=== PATIENT | female | born 1950 | race Asian ===

== ENCOUNTER 2021-08-12 13:49 | Inpatient (IN) | payer MEDICARE ==
[~2021-08-12] VITALS: Ht 165.1 cm; Wt 72.7 kg
[2021-08-12 14:30] LABS: BASOPHILS % (AUTO) 0.3 % (0-1); EOSINOPHILS % (AUTO) 0.3 % (0-6); HEMATOCRIT 34.2 % (35.0-45.0); HEMOGLOBIN 11.5 g/dl (12.0-16.0); LYMPHOCYTES # (AUTO) 0.9 X10'3 (1.1-4.8); LYMPHOCYTES % (AUTO) 9.2 % (21-51); MEAN CORPUSCULAR HEMOGLOBIN 28.8 PG (27.0-31.0); MEAN CORPUSCULAR HGB CONC 33.6 g/dL (33.0-36.5); MEAN CORPUSCULAR VOLUME 85.7 FL (78-98); MEAN PLATELET VOLUME 7.3 FL (7.4-10.4); MONOCYTES # (AUTO) 1.1 X10'3 (0-0.9); MONOCYTES % (AUTO) 11.1 % (2-12); NEUTROPHILS # (AUTO) 7.7 X10'3 (1.8-7.7); NEUTROPHILS % (AUTO) 79.1 % (42-75); PLATELET COUNT 321 X10'3 (140-440); RED BLOOD COUNT 3.99 X10'6 (4.20-5.60); RED CELL DISTRIBUTION WIDTH 14.3 % (11.5-14.5); WHITE BLOOD COUNT 9.8 X10'3 (4.5-11.0)
[2021-08-12 14:44] LABS: CHLORIDE 95 MMOL/L (99-107); GLUCOSE 104 MG/DL (70-104); POTASSIUM 3.8 MMOL/L (3.5-5.1); SODIUM 130 MMOL/L (135-145); TOTAL CARBON DIOXIDE 28.3 MMOL/L (24-32)
[2021-08-12 14:45] LABS: ALANINE AMINOTRANSFERASE 80 U/L (12-78); ALBUMIN 2.3 G/DL (3.4-5.0); ALBUMIN/GLOBULIN RATIO 0.4 (1.1-1.5); ALKALINE PHOSPHATASE 571 IU/L (46-116); ANION GAP 7 (8-16); ASPARTATE AMINO TRANSFERASE 69 U/L (10-37); BILIRUBIN,TOTAL 1.1 MG/DL (0.1-1.0); BLOOD UREA NITROGEN 11 MG/DL (7-18); BUN/CREATININE RATIO 16.9 (6.6-38.0); CALCIUM 8.5 MG/DL (8.5-10.1); CREATININE 0.65 MG/DL (0.40-0.90); TOTAL PROTEIN 8.2 G/DL (6.4-8.2); eGFR 90 ML/MIN
[2021-08-12 14:48] LABS: CLARITY,URINE SLIGHTLY CLOUDY (Clear); GLUCOSE, URINE NEGATIVE (Neg); KETONES,URINE TRACE mg/dl (Neg); LEUKOCYTE ESTERASE ,URINE NEGATIVE (Neg); NITRITES, URINE NEGATIVE (Neg); OCCULT BLOOD,URINE TRACE-INTACT (Neg); PROTEIN,URINE 30 mg/dl (Neg)
[2021-08-12 14:53] LABS: COLOR,URINE DARK YELLOW (Yellow); UA COLLECTION TYPE CLN CATCH MIDSTREAM
[2021-08-12 14:54] LABS: WBC,URINE 0-4 /HPF (0-4)
[2021-08-12 14:55] LABS: BACTERIA,URINE FEW /HPF (Neg); RBC,URINE 0-2 /HPF (0-2); SQUAMOUS EPITHELIAL CELL,UR FEW /LPF (FEW)
[2021-08-12 14:57] LABS: HYALINE CASTS 0-3 /LPF (NEGATIVE); MUCUS STRANDS MANY /LPF (Neg)
[2021-08-12] MEDS ORDERED: HYDROcodone/acetaminophen 5mg/325mg tablet PO ONE (22:25)
[2021-08-12] MEDS ORDERED: aspirin 325mg tablet PO ONE (23:15)
[2021-08-12] MEDS ORDERED: piperacillin/tazo 4.5gm/100ml 100 ML IV SCH ×2 (23:25→23:47)
[2021-08-12 23:45] LABS: LIPASE 1305 U/L (73-393)
[2021-08-13] MEDS ORDERED: morphine 2 MG/ML inj. syringe IV PRN ×2 (00:10)
[2021-08-13] MEDS ORDERED: magnesium hydroxide 30ml (MOM) UD suspension PO PRN (00:10)
[2021-08-13] MEDS ORDERED: mag hydrox/Alum hydrox/simeth 30ml oral suspension PO PRN (00:10)
[2021-08-13] MEDS ORDERED: acetaminophen 325mg tablet PO PRN (00:10)
[2021-08-13] MEDS ORDERED: ondansetron/PF 4mg/2ml inj IV PRN (00:10)
[2021-08-13] MEDS ORDERED: PERFLUTREN PROTEIN-A MICROSPHR (Optison) 0.22 MG/ML 3ML VIAL IV ONE (00:25)
[2021-08-13] MEDS ORDERED: LISI10TA27 PO (01:03)
[2021-08-13] MEDS ORDERED: ATOR20TA PO (01:03)
[2021-08-13] MEDS: normal saline 1000ml 1,000 ML IV SCH ×3 (04:59→20:10)
--- NOTE | 2021-08-13 05:01 | NUR ---
Namratather that translates for patient left her number before leaving. Daughter's number if needed for translation, etc. is [phone]
[2021-08-13] MEDS: potassium CL 10mEq/100ml bag 100 ML IV PRN ×4 (05:48→16:38)
[2021-08-13] MEDS ORDERED: sevoflurane 250ml liquid IH ONE (06:00)
[2021-08-13] MEDS: K and/or MAG REPLACEMENT MC SCH ×2 (08:00→20:00)
[2021-08-13] MEDS: docusate sod 100mg capsule PO SCH ×2 (08:00→20:57)
[2021-08-13] MEDS: piperacillin/tazo 3.375gm/50ml 50 ML IV SCH ×3 (08:59→23:40)
[2021-08-13 10:12] LABS: BASOPHILS % (AUTO) 0.3 % (0-1); EOSINOPHILS % (AUTO) 0.3 % (0-6); HEMATOCRIT 33.8 % (35.0-45.0); HEMOGLOBIN 11.3 g/dl (12.0-16.0); LYMPHOCYTES # (AUTO) 0.6 X10'3 (1.1-4.8); LYMPHOCYTES % (AUTO) 8.5 % (21-51); MEAN CORPUSCULAR HEMOGLOBIN 28.5 PG (27.0-31.0); MEAN CORPUSCULAR HGB CONC 33.6 g/dL (33.0-36.5); MEAN PLATELET VOLUME 7.4 FL (7.4-10.4); MONOCYTES # (AUTO) 0.8 X10'3 (0-0.9); MONOCYTES % (AUTO) 11.4 % (2-12); NEUTROPHILS # (AUTO) 5.7 X10'3 (1.8-7.7); NEUTROPHILS % (AUTO) 79.5 % (42-75); PLATELET COUNT 307 X10'3 (140-440); RED BLOOD COUNT 3.98 X10'6 (4.20-5.60); RED CELL DISTRIBUTION WIDTH 14.2 % (11.5-14.5); WHITE BLOOD COUNT 7.2 X10'3 (4.5-11.0)
--- NOTE | 2021-08-13 10:20 | NUR ---
PT TO MRI
[2021-08-13 10:28] LABS: APTT 33 SECONDS (22-32)
[2021-08-13 10:32] LABS: ALANINE AMINOTRANSFERASE 59 U/L (12-78); ALBUMIN 1.9 G/DL (3.4-5.0); ALBUMIN/GLOBULIN RATIO 0.4 (1.1-1.5); ALKALINE PHOSPHATASE 496 IU/L (46-116); ANION GAP 6 (8-16); ASPARTATE AMINO TRANSFERASE 49 U/L (10-37); BILIRUBIN,TOTAL 0.8 MG/DL (0.1-1.0); BLOOD UREA NITROGEN 7 MG/DL (7-18); BUN/CREATININE RATIO 13.2 (6.6-38.0); CALCIUM 8.3 MG/DL (8.5-10.1); CHLORIDE 99 MMOL/L (99-107); CREATININE 0.53 MG/DL (0.40-0.90); GLUCOSE 105 MG/DL (70-104); POTASSIUM 3.8 MMOL/L (3.5-5.1); SODIUM 132 MMOL/L (135-145); TOTAL CARBON DIOXIDE 26.6 MMOL/L (24-32); eGFR > 90 ML/MIN
[2021-08-13] MEDS ORDERED: ONDA-104 PO (11:17)
--- NOTE | 2021-08-13 11:30 | NUR ---
DISCUSSED FOLLOW UP TROP PER ELEVATED INITIAL TROP ON ADMISSION. MD GAVE ORDER FOR REPEAT TROPONIN.
[2021-08-13 12:29] LABS: HEMOGLOBIN A1C 6.7 % (4.5-6.2)
--- NOTE | 2021-08-13 12:30 | NUR ---
NOTIFIED DR. MCKEON OF TROPONIN RESULT. RESULT SHOWS LITTLE CHANGE. MD GAVE NO NEW ORDERS.
[2021-08-13 13:33] LABS: LIPASE 567 U/L (73-393)
[2021-08-13 19:30] VITALS: BP 123/67
[2021-08-13] MEDS: lactobacillus rhamnosus 10,000 MMU CELLS/CAPSULE PO SCH (20:57)
[2021-08-14] VITALS: BP 96/78
[2021-08-14] MEDS: normal saline 1000ml 1,000 ML IV SCH ×2 (05:15→16:48)
--- NOTE | 2021-08-14 06:27 | NUR ---
Problems reprioritized. Patient report given, questions answered & plan of care reviewed with Joanne PHILIP.
[2021-08-14] MEDS: lactobacillus rhamnosus 10,000 MMU CELLS/CAPSULE PO SCH ×2 (06:49→19:28)
[2021-08-14] MEDS: docusate sod 100mg capsule PO SCH ×2 (06:49→19:28)
[2021-08-14 06:56] LABS: BASOPHILS % (AUTO) 0.4 % (0-1); EOSINOPHILS % (AUTO) 0.7 % (0-6); HEMATOCRIT 33.6 % (35.0-45.0); HEMOGLOBIN 11.2 g/dl (12.0-16.0); LYMPHOCYTES # (AUTO) 0.9 X10'3 (1.1-4.8); LYMPHOCYTES % (AUTO) 14.4 % (21-51); MEAN CORPUSCULAR HEMOGLOBIN 28.5 PG (27.0-31.0); MEAN CORPUSCULAR HGB CONC 33.4 g/dL (33.0-36.5); MEAN CORPUSCULAR VOLUME 85.4 FL (78-98); MEAN PLATELET VOLUME 7.7 FL (7.4-10.4); MONOCYTES # (AUTO) 0.8 X10'3 (0-0.9); NEUTROPHILS # (AUTO) 4.6 X10'3 (1.8-7.7); NEUTROPHILS % (AUTO) 71.5 % (42-75); PLATELET COUNT 313 X10'3 (140-440); RED BLOOD COUNT 3.93 X10'6 (4.20-5.60); RED CELL DISTRIBUTION WIDTH 14.2 % (11.5-14.5); WHITE BLOOD COUNT 6.4 X10'3 (4.5-11.0)
[2021-08-14 07:16] LABS: ALANINE AMINOTRANSFERASE 48 U/L (12-78); ALBUMIN 1.7 G/DL (3.4-5.0); ALBUMIN/GLOBULIN RATIO 0.3 (1.1-1.5); ALKALINE PHOSPHATASE 471 IU/L (46-116); ANION GAP 6 (8-16); ASPARTATE AMINO TRANSFERASE 45 U/L (10-37); BILIRUBIN,TOTAL 0.7 MG/DL (0.1-1.0); BLOOD UREA NITROGEN 5 MG/DL (7-18); BUN/CREATININE RATIO 9.4 (6.6-38.0); CALCIUM 7.9 MG/DL (8.5-10.1); CHLORIDE 101 MMOL/L (99-107); CREATININE 0.53 MG/DL (0.40-0.90); GLUCOSE 101 MG/DL (70-104); LIPASE 683 U/L (73-393); POTASSIUM 3.7 MMOL/L (3.5-5.1); SODIUM 134 MMOL/L (135-145); TOTAL CARBON DIOXIDE 27.1 MMOL/L (24-32); TOTAL PROTEIN 6.7 G/DL (6.4-8.2); eGFR > 90 ML/MIN
[2021-08-14] MEDS: K and/or MAG REPLACEMENT MC SCH ×2 (07:28→20:00)
[2021-08-14] MEDS: piperacillin/tazo 3.375gm/50ml 50 ML IV SCH ×2 (07:29→16:48)
[2021-08-14 09:00] VITALS: BP 125/73
[2021-08-14 13:45] LABS: CARCINOEMBRYONIC ANTIGEN 0.8 ng/mL (0.0-4.7)
--- NOTE | 2021-08-14 14:15 | NUR ---
DM/malnutrition consults: Pt with T2DM, well controlled with A1c 6.7%, DM education not warranted at this time. Pt reports wt loss with decreased appetite per malnutrition risk screen with RN. Per ED report pt has been having abdominal discomfort for approximately one month with N/V over the past two days. No documentation of how current wt was obtained and no wt hx in EMR, though if current wt is accurate it is 128% IBW. Attempted visit at bedside though pt appeared to be sleeping and no visitors at bedside. No visible fat or muscle wasting was noted. Pt with an active clear liquid diet though documented to be NPO. No documented decrease in muscle strength or edema. Pt currently lacks a minimum of two criteria for malnutrition. Will continue to follow and further monitor qualifying criteria for malnutrition. Addendum: 08/14/21 at [address] Amended: Links added.
--- NOTE | 2021-08-14 18:31 | NUR ---
Patient in room [facility]. I have received report from Joanne PHILIP and had the opportunity to ask questions and assume patient care.
--- NOTE | 2021-08-14 18:31 | NUR ---
Problems reprioritized. Patient report given, questions answered & plan of care reviewed with MARCOS PHILIP.
[2021-08-14 20:00] VITALS: BP 109/70
[2021-08-15] VITALS (21 sets, daily range): BP systolic 107–159; BP diastolic 64–93
[2021-08-15] MEDS: piperacillin/tazo 3.375gm/50ml 50 ML IV SCH ×4 (00:01→23:13)
[2021-08-15] MEDS: normal saline 1000ml 1,000 ML IV SCH ×3 (02:10→22:10)
[2021-08-15 05:57] LABS: BASOPHILS % (AUTO) 0.3 % (0-1); EOSINOPHILS # (AUTO) 0.1 X10'3 (0-0.9); EOSINOPHILS % (AUTO) 0.8 % (0-6); HEMATOCRIT 34.6 % (35.0-45.0); HEMOGLOBIN 11.6 g/dl (12.0-16.0); LYMPHOCYTES # (AUTO) 1.3 X10'3 (1.1-4.8); LYMPHOCYTES % (AUTO) 20.2 % (21-51); MEAN CORPUSCULAR HEMOGLOBIN 28.7 PG (27.0-31.0); MEAN CORPUSCULAR HGB CONC 33.6 g/dL (33.0-36.5); MEAN CORPUSCULAR VOLUME 85.4 FL (78-98); MEAN PLATELET VOLUME 7.5 FL (7.4-10.4); MONOCYTES # (AUTO) 0.9 X10'3 (0-0.9); MONOCYTES % (AUTO) 13.2 % (2-12); NEUTROPHILS # (AUTO) 4.4 X10'3 (1.8-7.7); NEUTROPHILS % (AUTO) 65.5 % (42-75); PLATELET COUNT 359 X10'3 (140-440); RED BLOOD COUNT 4.06 X10'6 (4.20-5.60); RED CELL DISTRIBUTION WIDTH 14.2 % (11.5-14.5); WHITE BLOOD COUNT 6.7 X10'3 (4.5-11.0)
[2021-08-15 06:13] LABS: ALANINE AMINOTRANSFERASE 54 U/L (12-78); ALBUMIN 2.1 G/DL (3.4-5.0); ALBUMIN/GLOBULIN RATIO 0.4 (1.1-1.5); ALKALINE PHOSPHATASE 569 IU/L (46-116); ANION GAP 7 (8-16); ASPARTATE AMINO TRANSFERASE 55 U/L (10-37); BILIRUBIN,TOTAL 0.8 MG/DL (0.1-1.0); BLOOD UREA NITROGEN 4 MG/DL (7-18); BUN/CREATININE RATIO 6.3 (6.6-38.0); CALCIUM 8.6 MG/DL (8.5-10.1); CHLORIDE 101 MMOL/L (99-107); CREATININE 0.64 MG/DL (0.40-0.90); GLUCOSE 99 MG/DL (70-104); POTASSIUM 3.3 MMOL/L (3.5-5.1); SODIUM 135 MMOL/L (135-145); TOTAL CARBON DIOXIDE 27.5 MMOL/L (24-32); TOTAL PROTEIN 7.5 G/DL (6.4-8.2); eGFR > 90 ML/MIN
--- NOTE | 2021-08-15 06:18 | NUR ---
Problems reprioritized. Patient report given, questions answered & plan of care reviewed with Kathryn PHILIP.
[2021-08-15] MEDS ORDERED: BUPIVAcaine/PF 2.5 mg/ml (0.25%) 30ml vial ONE ×2 (06:45→08:46)
[2021-08-15] MEDS ORDERED: INDOCYANINE GREEN 25 MG/10 ML VIAL IV ONE (06:55)
--- NOTE | 2021-08-15 07:30 | NUR ---
Surgery has taken patient to OR. She is alert, oriented and appropriate.
[2021-08-15] MEDS: docusate sod 100mg capsule PO SCH ×2 (08:00→20:30)
[2021-08-15] MEDS: K and/or MAG REPLACEMENT MC SCH ×2 (08:00→20:36)
[2021-08-15] MEDS ORDERED: propofol inj 20 ML IV ONE (08:00)
[2021-08-15] MEDS: lactobacillus rhamnosus 10,000 MMU CELLS/CAPSULE PO SCH ×2 (08:00→20:30)
[2021-08-15] MEDS ORDERED: fentaNYL/PF 50MCG/1 ML 2ML syringe ONE (08:01)
[2021-08-15] MEDS ORDERED: rocuronium 10mg/ml inj IV ONE (08:01)
[2021-08-15] MEDS ORDERED: midazolam 1 mg/ML 2ml injection ONE (08:01)
[2021-08-15] MEDS ORDERED: morphine 4 MG/ML inj SYRINge IV PRN (09:05)
[2021-08-15] MEDS ORDERED: ondansetron/PF 4mg/2ml inj IV PRN (09:05)
[2021-08-15] MEDS ORDERED: morphine 2 MG/ML inj. syringe IV PRN (09:05)
[2021-08-15] MEDS ORDERED: meperidine/PF 25mg/ml syringe IV PRN ×3 (09:05)
[2021-08-15] MEDS ORDERED: ringers solution, lacted 1,000 ML IV SCH (09:05)
[2021-08-15] MEDS ORDERED: proCHLORperazine 10 MG/2 ml inj IV PRN (09:05)
[2021-08-15] MEDS ORDERED: ondansetron/PF 4mg/2ml inj ONE (09:24)
[2021-08-15] MEDS ORDERED: dexamethasone sod phosphate 4mg/ml inj. ONE (09:24)
[2021-08-15] MEDS ORDERED: sugammadex 200mg/2ml injection IV ONE (09:43)
--- NOTE | 2021-08-15 09:54 | NUR ---
Received from OR via , accompanied by Anesthesiologist DR CASTILLO and report given by Anesthesiolgist. PT PRESENTS WITH 20 G RIGHT WRIST, ABD DRESSING CLEAN DRY AND INTACT. VSS. Addendum: 08/15/21 at 1006 by Kelley Monsalve RN, RN Amended: Links added.
--- NOTE | 2021-08-15 10:44 | NUR ---
PT'S SISTER NOAH . PT'S SISTER CAN TRANSLATE PT SPEAKS CZECH. Addendum: 08/15/21 at 1045 by Kelley Monsalve RN, RN Amended: Links added.
--- NOTE | 2021-08-15 11:14 | NUR ---
Report called to receiving nurse DRAKE PHILIP. Transferred via HOSPITAL BED, PT Belongings WERE LEFT IN PT ROOM 348A. BED LOCKED IN LOW POSITION, PT PROVIDED CALL LIGHT. Special Issues communicated to receiving nurse. Addendum: 08/15/21 at 1132 by Kelley Monsalve RN RN Amended: Links added.
--- NOTE | 2021-08-15 11:30 | NUR ---
Patient has arrived back in room. Sisters on their way to visit and Dr Amaral will talk to them about results of surgery. Pt resting comfortably at this time. No complaints of pain. Monitoring.
[2021-08-15] MEDS: potassium CL 10mEq/100ml bag 100 ML IV PRN ×4 (12:48→18:14)
--- NOTE | 2021-08-15 16:00 | NUR ---
Patients heart rate seems to be irregular in the 40's at times and then back up to the 70's. No noted distress or new pains but I talked to Dr Amaral and we will get an EKG.
--- NOTE | 2021-08-15 16:50 | NUR ---
EKG sinus w/ ectopy, Dr Amaral has looked at it. Pt resting comfortably.
[2021-08-16] VITALS: BP 105/61
[2021-08-16 06:05] LABS: BASOPHILS % (AUTO) 0.1 % (0-1); EOSINOPHILS % (AUTO) 0.2 % (0-6); HEMATOCRIT 31.7 % (35.0-45.0); HEMOGLOBIN 10.8 g/dl (12.0-16.0); LYMPHOCYTES # (AUTO) 1.1 X10'3 (1.1-4.8); LYMPHOCYTES % (AUTO) 10.4 % (21-51); MEAN CORPUSCULAR VOLUME 85.2 FL (78-98); MEAN PLATELET VOLUME 7.6 FL (7.4-10.4); MONOCYTES % (AUTO) 9.5 % (2-12); NEUTROPHILS # (AUTO) 8.6 X10'3 (1.8-7.7); NEUTROPHILS % (AUTO) 79.8 % (42-75); PLATELET COUNT 351 X10'3 (140-440); RED BLOOD COUNT 3.73 X10'6 (4.20-5.60); RED CELL DISTRIBUTION WIDTH 13.9 % (11.5-14.5); WHITE BLOOD COUNT 10.8 X10'3 (4.5-11.0)
[2021-08-16 06:24] LABS: ALANINE AMINOTRANSFERASE 50 U/L (12-78); ALBUMIN 1.7 G/DL (3.4-5.0); ALBUMIN/GLOBULIN RATIO 0.4 (1.1-1.5); ALKALINE PHOSPHATASE 483 IU/L (46-116); ANION GAP 7 (8-16); ASPARTATE AMINO TRANSFERASE 51 U/L (10-37); BILIRUBIN,TOTAL 0.6 MG/DL (0.1-1.0); BLOOD UREA NITROGEN 6 MG/DL (7-18); BUN/CREATININE RATIO 10.5 (6.6-38.0); CALCIUM 8.3 MG/DL (8.5-10.1); CHLORIDE 104 MMOL/L (99-107); CREATININE 0.57 MG/DL (0.40-0.90); GLUCOSE 104 MG/DL (70-104); LIPASE 223 U/L (73-393); POTASSIUM 3.5 MMOL/L (3.5-5.1); SODIUM 137 MMOL/L (135-145); TOTAL PROTEIN 6.5 G/DL (6.4-8.2); eGFR > 90 ML/MIN
--- NOTE | 2021-08-16 06:43 | NUR ---
Patient in room [facility]. I have received report from Chasidy PHILIP and had the opportunity to ask questions and assume patient care.
[2021-08-16 07:00] VITALS: BP 107/64
[2021-08-16] MEDS: K and/or MAG REPLACEMENT MC SCH (08:00)
[2021-08-16] MEDS: piperacillin/tazo 3.375gm/50ml 50 ML IV SCH (08:06)
[2021-08-16] MEDS: docusate sod 100mg capsule PO SCH (08:06)
[2021-08-16] MEDS: lactobacillus rhamnosus 10,000 MMU CELLS/CAPSULE PO SCH (08:06)
[2021-08-16] MEDS: normal saline 1000ml 1,000 ML IV SCH (08:10)
[2021-08-16 11:00] VITALS: BP 115/67
[2021-08-16] MEDS ORDERED: ACET-1008 PO (14:34)
[2021-08-16] MEDS ORDERED: METR-159 PO (14:34)
[2021-08-16] MEDS ORDERED: CIPROFLOXACIN HCL PO (14:53)
--- NOTE | 2021-08-16 15:30 | NUR ---
Patient discharge home with family, family translated all information about new medications and follow up appointment. IV taken out at discharge and cannula was whole and intact upon discharge. Patient left with all belongings and was transported home in private vehicle.
== END 2021-08-16 15:30 | disposition home or self-care (01) | DRG 417 ==
LOC: ER 13:52 → ED HOLD 08-13 00:20 → SUR 3N 08-13 19:10
PROVIDERS: ADMIT Internal Medicine; ATTEND Family Medicine
PROC: 8E0W4CZ Robotic Assisted Procedure of Trunk Region, Percutaneous Endoscopic Approach (ICD-10-PCS; 2021-08-15)
PROC: BF532Z0 Other Imaging of Gallbladder and Bile Ducts using Fluorescing Agent, Intraoperative (ICD-10-PCS; 2021-08-15)
PROC: 0DBU4ZX Excision of Omentum, Percutaneous Endoscopic Approach, Diagnostic (ICD-10-PCS; 2021-08-15)
PROC: 0FT44ZZ Resection of Gallbladder, Percutaneous Endoscopic Approach (ICD-10-PCS; principal; 2021-08-15 08:01)
DX: K80.62 Calculus of gallbladder and bile duct with acute cholecystitis without obstruction (principal); K85.10 Biliary acute pancreatitis without necrosis or infection; I21.A1 Myocardial infarction type 2; E87.1 Hypo-osmolality and hyponatremia; C22.1 Intrahepatic bile duct carcinoma; C23 Malignant neoplasm of gallbladder; C80.0 Disseminated malignant neoplasm, unspecified; Z20.822 Contact with and (suspected) exposure to COVID-19; E78.00 Pure hypercholesterolemia, unspecified; E11.9 Type 2 diabetes mellitus without complications; E78.5 Hyperlipidemia, unspecified; I10 Essential (primary) hypertension; R63.0 Anorexia; Z68.26 Body mass index [BMI] 26.0-26.9, adult; Z79.899 Other long term (current) drug therapy
CPT/HCPCS: 36415; 71045; 74176; 74181; 76700; 80053; 81001; 82378; 82948; 83036; 83690; 84132; 84484; 85025; 85610; 85730; 86301; 87081; 87635; 88304; 88305; 88331; 88341; 88342; 93005; 93306; 99285; A4215; A4618; A6258; A7000; G0378; J1100; J2250; J2405; J2543; J2704; J3010; J3480; J3490; J7030; J7120